=== PATIENT | male | born 1955 | race Caucasian/White ===

== ENCOUNTER 2017-07-02 23:29 | Inpatient (IN) | payer OTHER ==
[~2017-07-02] VITALS: Ht 195.6 cm; Wt 108.0 kg
[2017-07-02 23:59] LABS: HEMATOCRIT 51.6 % (42.0-52.0); HEMOGLOBIN 17.5 gm/dL (14.0-18.0); MCH 30.7 pg (26.0-34.0); MCHC 33.9 g/dL (28.0-37.0); MCV 90.8 fL (80.0-100.0); MPV 8.2 fl. (7.2-11.1); NUCLEATED RBCS 0 /100WBC; PLATELET COUNT* 213 thou/uL (150-400); RBC 5.68 mil/uL (4.50-6.00); RDW-CV 12.9 % (10.5-14.5); WBC 18.1 thou/uL (4.0-11.0)
[2017-07-03 00:10] LABS: ALBUMIN 3.7 g/dL (3.4-5.0); CALCIUM 8.7 mg/dL (8.5-10.1); POTASSIUM 3.9 mmol/L (3.5-5.1); TOTAL BILIRUBIN 1.3 mg/dL (<0.1-1.0); TOTAL PROTEIN 7.9 g/dL (6.4-8.2)
[2017-07-03 01:34] LABS: ABSOLUTE BASOPHILS 0.2 thou/uL (0.0-0.2); ABSOLUTE LYMPHOCYTES 1.3 thou/uL (0.8-5.3); ABSOLUTE MONOCYTES 2.7 thou/uL (0.0-1.2); ABSOLUTE NEUTROPHILS 13.9 thou/uL (1.6-8.1); PLATELET ESTIMATE ADEQUATE
[2017-07-03 05:30] VITALS: BP 127/62
[2017-07-03 07:43] VITALS: BP 141/86
[2017-07-03 07:53] LABS: HEMATOCRIT 48.9 % (42.0-52.0); HEMOGLOBIN 16.5 gm/dL (14.0-18.0); MCH 30.9 pg (26.0-34.0); MCHC 33.8 g/dL (28.0-37.0); MCV 91.5 fL (80.0-100.0); MPV 8.1 fl. (7.2-11.1); RBC 5.35 mil/uL (4.50-6.00); RDW-CV 13.2 % (10.5-14.5); WBC 17.2 thou/uL (4.0-11.0)
[2017-07-03 07:55] LABS: CALCIUM 8.2 mg/dL (8.5-10.1); CREATININE 0.9 mg/dL (0.6-1.3); POTASSIUM 3.9 mmol/L (3.5-5.1)
[2017-07-03 09:00] VITALS: BP 155/86
[2017-07-03 10:07] LABS: APTT 33.6 Seconds (25.0-31.3); INR 1.3; PROTIME 12.2 Seconds (9.20-11.50)
[2017-07-03 11:35] VITALS: BP 132/80
[2017-07-03 15:58] VITALS: BP 151/88
--- NOTE | 2017-07-03 16:26 | 2DMMODE ---
[place] [address] 2 D/M-MODE ECHOCARDIOGRAM Name: KAREN BOYLE Room: [address] IN [facility]#: [id number] Admission: 07/03/17 Attend Phys: Isael Subramanian, Discharge: Date of : 55 Date of Service: 07/03/17 1625 Report #: [id number] THIS REPORT FOR: //name// APPROVED REPORT Study performed: 07/03/2017 14:06:28 EXAM: Comprehensive 2D, Doppler, and color-flow Echocardiogram Patient Location: In-Patient Room #: 230 Status: routine BSA: 2.26 HR: 55 bpm BP: 155/86 mmHg Rhythm: NSR Other Information Study Quality: Good Indications Pleural Effusion 2D Dimensions LVEF(%): 67.32 (>50%) IVSd: 11.76 (7-11mm) LVOT Diam: 24.55 (18-24mm) LVDd: 52.17 mm PWd: 10.08 (7-11mm) Ascending Ao: 36.10 (22-36mm) LVDs: 32.54 (25-40mm) Aortic Root: 37.70 mm French's LVEF: 67.32 % Volumes Left Atrial Volume (Systole) LA ESV Index: 28.50 mL/m2 Aortic Valve AoV Peak Moiz.: 1.45 m/s AO Peak Gr.: 8.46 mmHg LVOT Max P.74 mmHg AO Mean Gr.: 5.02 mmHg LVOT Mean P.65 mmHg LVOT Max V: 1.39 m/s AO V2 VTI: 24.77 cm LVOT Mean V: 0.88 m/s AMBER (VTI): 5.02 cm2 LVOT V1 VTI: 26.27 cm Mitral Valve E/A Ratio: 1.02 [place] [address] 2 D/M-MODE ECHOCARDIOGRAM Name: KAREN BOYLE Room: [address] IN [facility].#: [id number] Admission: 07/03/17 Attend Phys: Isael Subramanian, Discharge: Date of : 55 Date of Service: 07/03/17 1625 Report #: [id number] MV Decel. Time: 196.22 ms MV E Max Moiz.: 0.89 m/s MV PHT: 56.90 ms MVA (PHT): 3.87 cm2 TDI E/Lateral E': 9.89 E/Medial E': 8.09 Medial E' Moiz.: 0.11 m/s Lateral E' Moiz.: 0.09 m/s Pulmonary Valve PV Peak Moiz.: 1.22 m/s PV Peak Gr.: 5.98 mmHg Left Ventricle The left ventricle is normal size. There is normal LV segmental wall motion. Mild concentric left ventricular hypertrophy. Left ventricular systolic function is normal. The left ventricular ejection fraction is within the normal range. LVEF is 55-60%. The left ventricular diastolic function is normal. Right Ventricle The right ventricle is normal size. The right ventricular systolic function is normal. Atria The left atrium size is normal. The right atrium size is normal. Aortic Valve The aortic valve is normal in structure. No aortic regurgitation is present. There is no aortic valvular stenosis. Mitral Valve The mitral valve is normal in structure. There is no mitral valve regurgitation noted. No evidence of mitral valve stenosis. Tricuspid Valve The tricuspid valve is normal in structure. Unable to assess PA pressure. Trace tricuspid regurgitation. Pulmonic Valve The pulmonary valve is normal in structure. There is no pulmonic valvular regurgitation. Great Vessels The aortic root is normal in size. IVC [place] [address] 2 D/M-MODE ECHOCARDIOGRAM Name: TAMARKAREN BRANDON Kyara Room: [address] IN .#: [id number] Admission: 07/03/17 Attend Phys: Isael Subramanian, Discharge: Date of : 55 Date of Service: 07/03/17 1625 Report #: [id number] collapses with >50% inspiration Pericardium There is no pericardial effusion. Left pleural effusion. <Conclusion> The left ventricle is normal size. Mild concentric left ventricular hypertrophy. Left ventricular systolic function is normal. The left ventricular ejection fraction is within the normal range. LVEF is 55-60%. The left ventricular diastolic function is normal. The right ventricle is normal size. The left atrium size is normal. The aortic valve is normal in structure. The mitral valve is normal in structure. The tricuspid valve is normal in structure. IVC is normal in size and collapses with >50% inspiration There is no pericardial effusion. There is normal LV segmental wall motion. <ELECTRONICALLY SIGNED> By: Gael Gipson MD, FACC 07/03/17 1625 1625 1625 Gael Gipson MD, FACC /INF
[2017-07-03] MEDS ORDERED: ZYRTEC-D TABLE1 EAC1 PO (17:24)
[2017-07-03 20:00] VITALS: BP 126/67
[2017-07-04] VITALS: BP 129/85
[2017-07-04 02:07] LABS: GLYCOHEMOGLOBIN (HGB A1C) 4.7 % (4.8-5.6)
[2017-07-04 04:00] VITALS: BP 128/80
[2017-07-04 05:31] LABS: HEMATOCRIT 46.3 % (42.0-52.0); HEMOGLOBIN 15.4 gm/dL (14.0-18.0); MCH 30.7 pg (26.0-34.0); MCHC 33.2 g/dL (28.0-37.0); MCV 92.4 fL (80.0-100.0); MPV 8.7 fl. (7.2-11.1); RBC 5.01 mil/uL (4.50-6.00); RDW-CV 13.4 % (10.5-14.5); WBC 16.6 thou/uL (4.0-11.0)
[2017-07-04 06:04] LABS: ALBUMIN 2.7 g/dL (3.4-5.0); CALCIUM 8.2 mg/dL (8.5-10.1); TOTAL BILIRUBIN 0.8 mg/dL (<0.1-1.0); TOTAL PROTEIN 6.1 g/dL (6.4-8.2)
--- NOTE | 2017-07-04 06:17 | EKG ---
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 : 1955 Requested By: Consuelo Hernandez Order Number: [id number] MD: Humza Potter Measurements Intervals [place] Rate: 75 P: 54 MA: 160 QRS: 42 QRSD: 114 T: 2 QT: 405 QTc: 453 Interpretive Statements Sinus rhythm Consider left atrial enlargement Borderline intraventricular conduction delay Minimal ST elevation, anterior leads No previous ECG available for comparison Electronically Signed On 07-04-2017 6:17:19 BROADCAST SUPERVISOR by Humza Potter [email or web address] <ELECTRONICALLY SIGNED> By: Humza Potter MD, [facility] 07/04/17 0617 Humza Potter MD, FACC /EPI
[2017-07-04 06:54] LABS: INFLUENZA A ANTIGEN None Detected (None Detect); INFLUENZA B ANTIGEN None DetectedA (None Detect)
[2017-07-04 08:00] VITALS: BP 130/77
[2017-07-04 11:18] VITALS: BP 145/81
[2017-07-04 15:42] VITALS: BP 149/81
[2017-07-04 20:00] VITALS: BP 145/79
[2017-07-05] VITALS (8 sets, daily range): BP systolic 131–147; BP diastolic 76–83
[2017-07-05 05:18] LABS: HEMATOCRIT 42.3 % (42.0-52.0); HEMOGLOBIN 14.4 gm/dL (14.0-18.0); MCH 31.2 pg (26.0-34.0); MCHC 34.1 g/dL (28.0-37.0); MCV 91.3 fL (80.0-100.0); RBC 4.63 mil/uL (4.50-6.00); RDW-CV 13.3 % (10.5-14.5); WBC 14.3 thou/uL (4.0-11.0)
[2017-07-05 05:38] LABS: ALBUMIN 2.4 g/dL (3.4-5.0); CALCIUM 8.2 mg/dL (8.5-10.1); CREATININE 0.9 mg/dL (0.6-1.3); MAGNESIUM 1.9 mg/dL (1.8-2.4); POTASSIUM 3.5 mmol/L (3.5-5.1); TOTAL BILIRUBIN 0.6 mg/dL (<0.1-1.0); TOTAL PROTEIN 6.5 g/dL (6.4-8.2)
[2017-07-06 03:40] VITALS: BP 136/82
[2017-07-06 04:32] LABS: HEMATOCRIT 44.7 % (42.0-52.0); HEMOGLOBIN 15.1 gm/dL (14.0-18.0); MCHC 33.8 g/dL (28.0-37.0); MCV 91.8 fL (80.0-100.0); MPV 9.1 fl. (7.2-11.1); RBC 4.88 mil/uL (4.50-6.00); RDW-CV 13.3 % (10.5-14.5); WBC 10.8 thou/uL (4.0-11.0)
[2017-07-06 04:48] LABS: ALBUMIN 2.3 g/dL (3.4-5.0); CALCIUM 8.2 mg/dL (8.5-10.1); POTASSIUM 3.9 mmol/L (3.5-5.1); TOTAL BILIRUBIN 0.4 mg/dL (<0.1-1.0); TOTAL PROTEIN 6.7 g/dL (6.4-8.2)
[2017-07-06 08:24] VITALS: BP 141/85
[2017-07-06 16:00] VITALS: BP 156/89
[2017-07-06 21:00] VITALS: BP 154/94
[2017-07-07 04:17] LABS: HEMATOCRIT 43.8 % (42.0-52.0); HEMOGLOBIN 14.6 gm/dL (14.0-18.0); MCH 30.6 pg (26.0-34.0); MCHC 33.4 g/dL (28.0-37.0); MCV 91.5 fL (80.0-100.0); MPV 7.9 fl. (7.2-11.1); RBC 4.79 mil/uL (4.50-6.00); RDW-CV 13.2 % (10.5-14.5); WBC 9.8 thou/uL (4.0-11.0)
[2017-07-07 04:34] VITALS: BP 158/90
[2017-07-07 04:50] LABS: ALBUMIN 2.3 g/dL (3.4-5.0); CALCIUM 8.1 mg/dL (8.5-10.1); CREATININE 1.1 mg/dL (0.6-1.3); MAGNESIUM 2.2 mg/dL (1.8-2.4); POTASSIUM 3.7 mmol/L (3.5-5.1); TOTAL BILIRUBIN 0.3 mg/dL (<0.1-1.0); TOTAL PROTEIN 6.5 g/dL (6.4-8.2)
[2017-07-07 07:45] VITALS: BP 140/85
[2017-07-07 15:59] VITALS: BP 162/78
[2017-07-07 19:30] VITALS: BP 156/90
[2017-07-08 00:10] VITALS: BP 165/97
[2017-07-08 04:00] VITALS: BP 156/97
[2017-07-08 04:21] LABS: HEMOGLOBIN 14.9 gm/dL (14.0-18.0); MCH 30.3 pg (26.0-34.0); MCHC 33.1 g/dL (28.0-37.0); MCV 91.6 fL (80.0-100.0); MPV 8.1 fl. (7.2-11.1); RBC 4.91 mil/uL (4.50-6.00); RDW-CV 13.4 % (10.5-14.5); WBC 8.8 thou/uL (4.0-11.0)
[2017-07-08 04:58] LABS: ALBUMIN 2.3 g/dL (3.4-5.0); CALCIUM 8.1 mg/dL (8.5-10.1); MAGNESIUM 1.9 mg/dL (1.8-2.4); POTASSIUM 3.4 mmol/L (3.5-5.1); TOTAL BILIRUBIN 0.5 mg/dL (<0.1-1.0); TOTAL PROTEIN 6.1 g/dL (6.4-8.2)
[2017-07-08 08:34] VITALS: BP 144/68
[2017-07-08 13:41] VITALS: BP 144/68
[2017-07-08] MEDS ORDERED: FLAGYL500 M1 PO (13:59)
[2017-07-08] MEDS ORDERED: CIPRO500 MG PO (13:59)
[2017-07-08] MEDS ORDERED: HYDROCODON-ACE1 EAC8 PO (14:00)
[2017-07-08] MEDS ORDERED: ASPERCREME1 EACH TRANSDERM (14:06)
[2017-07-08 14:32] LABS: CALCIUM 8.5 mg/dL (8.5-10.1); MAGNESIUM 2.1 mg/dL (1.8-2.4)
[2017-07-08 16:59] LABS: POTASSIUM 3.5 mmol/L (3.5-5.1)
--- NOTE | 2017-07-10 10:57 | CON ---
[address] [address] CONSULTATION Name: KAREN BOYLE Room: [address] IN .R.#: [id number] Admission: 07/03/17 Attend Phys: Isael Subramanian MD Discharge: 07/08/17 Date of : 55 Report #: [id number] THIS REPORT FOR: //name// CC: Isael Oconnell [facility] DATE OF SERVICE: 07/08/2017 REFERRING PHYSICIAN: Isael Subramanian MD CHIEF COMPLAINT: Abnormal chest x-ray. HISTORY OF PRESENT ILLNESS: The patient is a 61-year-old male who presented to the hospital with abdominal pain. His hospitalization resulted in findings of an acute cholecystitis. He underwent a surgical procedure, which was performed uneventfully. This was done on 07/05/2017. He had a diagnostic laparoscopic evaluation with lysis of adhesions, cholecystectomy, tube placement, gallbladder aspiration and ASHLEY drain in the right upper quadrant. Procedure was performed in an uneventful manner. He has recovered nicely. His pain is controlled. He denies any respiratory issues at this time. Because of an abnormal chest x-ray, we were consulted. ALLERGIES: None known. PAST MEDICAL HISTORY: None. SOCIAL HISTORY: He had been a smoker, quit in 2000, but had been as high as 2 packs per day off and on since his teenage years. REVIEW OF SYSTEMS: Systems review negative other than what is outlined above. FAMILY HISTORY: Positive for his father having mesothelioma. MEDICATIONS: Lidoderm patch, levothyroxine, Zosyn. PHYSICAL EXAMINATION: VITAL SIGNS: Blood pressure 144/68, respiratory rate 18, pulse rate 68, temperature 97.8 degrees. GENERAL APPEARANCE: Awake, alert, oriented, no respiratory distress. HEENT: Head: Atraumatic. Eyes: Pupils are round and equal, reactive. Sclerae and conjunctivae are clear. NECK: Without adenopathy. CHEST: Reveals diminished breath sounds in the bases. CARDIOVASCULAR: Regular rhythm. ABDOMEN: Soft, without organomegaly. Drainage tubes [place] [address] CONSULTATION Name: KAREN BOYLE Room: [address] IN ..#: [id number] Admission: 07/03/17 Attend Phys: Isael Subramanian MD Discharge: 07/08/17 Date of : 55 Report #: [id number] present in the right upper quadrant area of the abdomen. EXTREMITIES: Without edema. No evidence of clubbing. SKIN: Warm and dry without rash. NEUROLOGIC: Strength equal bilaterally. Light touch sensation normal. MEDICAL IMAGING STUDIES: CT of the abdomen/pelvis revealed small effusion on the right, but mild to moderate effusion on the left side. There appears to be a pleural based density with some consolidative process in the right lower lung field, one involving the lateral aspect of the right lower chest as well as one medially just adjacent to the collection of pleural fluid. LABORATORY DATA: Sodium 139, potassium 3.4, chloride 103, CO2 of 31, BUN of 18, creatinine 1.0. Hemoglobin and hematocrit are 14.9 and 45, white count 8800, platelet count 239,000. Influenza A/B screen was negative. IMPRESSION: 1. Abdominal pain status post cholecystitis. 2. Status post abdominal surgery as outlined above. See the formal dictated surgical report. 3. Abnormal chest x-ray with the findings as described above with a mild effusion on the left with some consolidative process and pleural based density. RECOMMENDATION: The patient has undergone CT exam of the chest. This would be helpful to have that inflow to determine any further workup and/or evaluation regarding those abnormalities. The patient is interested in going home. Surgical department has recommended discharge. Pulmonary smith, I see no reason why the patient cannot be discharged. Evaluation of his abnormal chest x-ray can be performed as an outpatient as well. The patient understands this and will follow through if that is the plan that develops. <ELECTRONICALLY SIGNED> By: Reji Heaton MD 07/10/17 1057 1101 [id number] Scherer MD /nt
--- NOTE | 2017-08-14 10:58 | OP ---
[facility] [address] [place] [address] OPERATIVE REPORT Name: KAREN BOYLE Room: [address] IN M.R.#: [id number] Admission: 07/03/17 Attend Phys: Isael Subramanian MD Discharge: 07/08/17 Date of : 55 Report #: [id number] THIS REPORT FOR: //name// CC: Isael Oconnell [facility] DICTATED BY: Kiley Tucker DO DATE OF SERVICE: 07/05/2017 This is Kiley Tucker DO, PGY5 dictating for Dr. Kev Castaneda. PREOPERATIVE DIAGNOSIS: Acute cholecystitis. POSTOPERATIVE DIAGNOSIS: Acute perforated cholecystitis. SURGEON: Kiley Tucker DO, PGY5. SUPERVISING SURGEON: Kev Castaneda DO OUTREACH WORKER: Bi Doyle, PGY1 PROCEDURE: Diagnostic laparoscopy with lysis of adhesions, cholecystostomy tube placement, gallbladder aspiration and ASHLEY drain in the right upper quadrant. ANESTHESIA: General endotracheal. BLOOD LOSS: 10 mL. SPECIMENS: Bile sent for culture. COMPLICATIONS: None. DISPOSITION: PACU to med/surg. OPERATIVE DETAILS: After obtaining proper informed consent, the patient was brought to the operating room and laid supine on the operating table. He was given his scheduled for antibiotics and sedated and intubated under the benefit of general anesthesia. Abdomen was prepped and draped in the usual sterile fashion and timeout was performed. Supraumbilical incision was made and dissection of subcutaneous tissue was carried out with the use of cautery to the level of the fascia. A nicking incision was made in the fascia and this was grasped with 2 Tyler clamps and elevated and fascial incision was extended slightly inferiorly and superiorly. Peritoneum was entered bluntly with a hemostat. A ikobwx-tj-shjzj 0 Vicryl sutures were placed in the fascia and Alis trocar was placed in the abdomen and abdomen [place] [address] OPERATIVE REPORT Name: KAREN BOYLE Room: [address]#: [id number] Admission: 07/03/17 Attend Phys: Isael Subramanian MD Discharge: 07/08/17 Date of : 55 Report #: [id number] 4-quadrant inspection was undertaken. There were significant swelling and omental adhesions to the right upper quadrant overlying the expected area of the gallbladder. A 5 mm trocar was placed in the right lateral abdomen under direct visualization followed by a 5 mm trocar in the subxiphoid position again under direct visualization. A gentle blunt dissection was undertaken and omental adhesions were taken down from the anterior abdominal wall and then gently peeled away from the liver edge until we could reveal the gallbladder. There did appear to be some leakage of bile from the superior lateral aspect of the gallbladder. At this point, we decided to place a cholecystostomy tube. A 12-Algerian cholecystostomy tube was placed through the right lateral abdomen and in good position within the gallbladder. It was aspirated with copious amounts of thickened somewhat purulent appearing bile was aspirated. This was sent for culture. Once the gallbladder was significantly deflated, trocars were removed under direct visualization and abdomen was desufflated. After ASHLEY drain was placed in the right upper quadrant, ASHLEY drain was secured with 2-0 nylon suture. An additional 2 xhwyfb-ut-kiugq 0 Vicryl sutures were placed in the fascia of the supraumbilical incision and skin of all incisions was closed with 4-0 Monocryl. Local infiltration of 0.5% Marcaine was injected around the incisions and both drains totalling 40 mL. Cholecystostomy tube was secured. Mastisol, Steri-Strips and sterile Tegaderm dressings were applied followed by gauze pressure dressing. All counts were correct at the end of the case. Drapes were removed and the patient was awoken, extubated and brought to PACU in good condition for further recovery. Dr. Kev Castaneda was present and scrubbed for the entirety of the procedure. <ELECTRONICALLY SIGNED> By: Kev Castaneda DO 08/14/17 1058 2256 [id number] Castaneda DO /nt
[2017-10-09] MEDS ORDERED: DAYTIME COU5 MG/5 ML PO (06:51)
[2017-10-09] MEDS ORDERED: TRAMADOL 50 MG50 MG PO (11:39)
== END 2017-07-08 15:21 | disposition home or self-care (01) | DRG 420 ==
LOC: M.ERS 23:29 → M.TBA-ER 07-03 01:41 → M.2W 07-03 01:41 → M.ORTHSURG 07-05 15:28
PROVIDERS: Emergency Medicine; Family Medicine; Internal Medicine; ADMIT Internal Medicine
DX: K81.0 Acute cholecystitis (principal); J15.6 Pneumonia due to other Gram-negative bacteria; J90 Pleural effusion, not elsewhere classified; E87.1 Hypo-osmolality and hyponatremia; E44.0 Moderate protein-calorie malnutrition; R65.10 Systemic inflammatory response syndrome (SIRS) of non-infectious origin without acute organ dysfunction; E87.6 Hypokalemia; D72.829 Elevated white blood cell count, unspecified; R73.9 Hyperglycemia, unspecified; Z68.28 Body mass index [BMI] 28.0-28.9, adult; Z87.891 Personal history of nicotine dependence; Z79.899 Other long term (current) drug therapy

== ENCOUNTER 2017-07-23 10:00 | Emergency (ER) | payer OTHER ==
[~2017-07-23] VITALS: Ht 182.9 cm; Wt 94.8 kg
[~2017-07-23 10:00] MED LIST: ASPERCREME1 EACH TRANSDERM; CIPRO500 MG PO; FLAGYL500 M1 PO; HYDROCODON-ACE1 EAC8 PO; ZYRTEC-D TABLE1 EAC1 PO
[2017-07-23 10:26] LABS: URINE BLOOD TRACE (Negative); URINE CLARITY CLEAR; URINE COLOR YELLOW; URINE GLUCOSE-RANDOM NEGATIVE (Negative); URINE KETONES TRACE (Negative); URINE LEUKOCYTES-REFLEX NEGATIVE (Negative); URINE NITRITE-REFLEX NEGATIVE (Negative); URINE PROTEIN 1+ (Negative); URINE SPECIFIC GRAVITY 1.015 (1.005-1.030); URINE UROBILINOGEN 0.2 E.U./dl (0.2-1.0)
[2017-07-23 10:34] LABS: ICTOTEST (BILI CONFIRMATORY) Negative (Negative); URINE BILIRUBIN 1+ (Negative)
[2017-07-23 10:45] LABS: HEMATOCRIT 51.1 % (42.0-52.0); HEMOGLOBIN 17.2 gm/dL (14.0-18.0); MCH 30.1 pg (26.0-34.0); MCHC 33.6 g/dL (28.0-37.0); MCV 89.7 fL (80.0-100.0); MPV 8.7 fl. (7.2-11.1); NUCLEATED RBCS 0 /100WBC; PLATELET COUNT* 126 thou/uL (150-400); RDW-CV 13.5 % (10.5-14.5); WBC 7.9 thou/uL (4.0-11.0)
[2017-07-23 10:51] LABS: CREATININE 1.2 mg/dL (0.6-1.3); POTASSIUM 3.3 mmol/L (3.5-5.1)
[2017-07-23 10:55] LABS: TOTAL BILIRUBIN 0.7 mg/dL (<0.1-1.0)
[2017-07-23 11:03] LABS: ABSOLUTE LYMPHOCYTES 0.5 thou/uL (0.8-5.3); ABSOLUTE MONOCYTES 0.2 thou/uL (0.0-1.2); ABSOLUTE NEUTROPHILS 7.2 thou/uL (1.6-8.1); ANISOCYTOSIS 1+; PLATELET ESTIMATE DECREASED; POIKILOCYTOSIS 1+
[2017-07-23 17:30] VITALS: BP 135/68
[2017-10-09] MEDS ORDERED: DAYTIME COU5 MG/5 ML PO (06:51)
[2017-10-09] MEDS ORDERED: TRAMADOL 50 MG50 MG PO (11:39)
== END 2017-07-23 17:31 | disposition home or self-care (01) ==
LOC: M.ERS 10:00
PROVIDERS: Nurse Practitioner Family
DX: G89.18 Other acute postprocedural pain (principal); R10.11 Right upper quadrant pain; F10.99 Alcohol use, unspecified with unspecified alcohol-induced disorder; Z88.5 Allergy status to narcotic agent

== ENCOUNTER 2017-08-27 13:11 | Inpatient (IN) | payer OTHER ==
[2017-08-27] VITALS (10 sets, daily range): BP systolic 112–129; BP diastolic 61–72
[~2017-08-27] VITALS: Ht 182.9 cm; Wt 106.6 kg
[2017-08-27 14:18] LABS: CREATININE 1.3 mg/dL (0.6-1.3)
--- NOTE | 2017-08-27 18:51 | NUR ---
PATIENT CAME TO THE FLOOR FROM IR IN STABLE CONDITION, NO COMPLAINTS AT THIS TIME. ORIENTED TO ROOM, CALL LIGHT IN REACH AND QUESTIONS ANSWERED FOR PATIENT. WILL PASS ON REPORT TO DIRECTOR OF FIRST IMPRESSIONS.
[2017-08-27 19:29] LABS: HEMATOCRIT 43.4 % (42.0-52.0); HEMOGLOBIN 14.3 gm/dL (14.0-18.0); MCH 28.2 pg (26.0-34.0); MCV 85.7 fL (80.0-100.0); MPV 7.7 fl. (7.2-11.1); NUCLEATED RBCS 0 /100WBC; PLATELET COUNT* 269 thou/uL (150-400); RBC 5.07 mil/uL (4.50-6.00); RDW-CV 13.8 % (10.5-14.5); WBC 12.2 thou/uL (4.0-11.0)
[2017-08-27 19:42] LABS: ALBUMIN 2.5 g/dL (3.4-5.0); CALCIUM 8.2 mg/dL (8.5-10.1); CREATININE 1.1 mg/dL (0.6-1.3); MAGNESIUM 2.5 mg/dL (1.8-2.4); PHOSPHORUS* 3.5 mg/dL (2.5-4.9); POTASSIUM 3.4 mmol/L (3.5-5.1); TOTAL BILIRUBIN 0.5 mg/dL (<0.1-1.0); TOTAL PROTEIN 7.1 g/dL (6.4-8.2)
[2017-08-27 20:03] LABS: ABSOLUTE LYMPHOCYTES 1.3 thou/uL (0.8-5.3); ABSOLUTE MONOCYTES 0.7 thou/uL (0.0-1.2); ABSOLUTE NEUTROPHILS 10.1 thou/uL (1.6-8.1)
[2017-08-27 20:04] LABS: PLATELET ESTIMATE ADEQUATE
[2017-08-28] VITALS (7 sets, daily range): BP systolic 114–131; BP diastolic 66–79
[2017-08-28 05:27] LABS: HEMATOCRIT 41.5 % (42.0-52.0); HEMOGLOBIN 14.1 gm/dL (14.0-18.0); MCH 28.8 pg (26.0-34.0); MCHC 34.1 g/dL (28.0-37.0); MCV 84.4 fL (80.0-100.0); MPV 7.5 fl. (7.2-11.1); RBC 4.91 mil/uL (4.50-6.00); RDW-CV 13.7 % (10.5-14.5); WBC 9.4 thou/uL (4.0-11.0)
--- NOTE | 2017-08-28 05:43 | NUR ---
PT SLEPT FAIRLY WELL OVERNIGHT, AWAKE THIS MORNING WATCHING NEWS. RECEIVING PO PAIN MED Q4 HOURS PRN FOR PAIN 07/28 WITH GOOD RESULT. R SIDE ABD YUSUF TUBE DRAINING 75ML BLOODY PURULENT DRAINAGE. USING URINAL TO VOID OVERNIGHT WITHOUT DIFFICULTY. REFUSING SCDS, EDUCATION GIVEN. PT ABLE TO TURN SELF, REFUSING STAFF ASSIST TURNS OVERNIGHT, EDUCATION GIVEN. RAC SL, ABX GIVEN ORDERED. VSS. ABLE TO USE CALL LITE AND MAKE NEEDS KNOWN. ABD AROUND TUBE SITE REMAINS RED, WARM AND SL FIRM TO TOUCH. PT TOLERATING CLEAR LIQUIDS WITHOUT DIFFICULTY, TO HAVE REGULAR DIET FOR BREAKFAST. PT AGREEABLE TO GETTING OOB WITH BREAKFAST. ABLE TO USE CALL LITE AND MAKE NEEDS KNOWN. AM LABS.
[2017-08-28 05:55] LABS: CALCIUM 8.6 mg/dL (8.5-10.1); POTASSIUM 3.7 mmol/L (3.5-5.1)
--- NOTE | 2017-08-28 16:01 | NUR ---
SW met with pt to complete initial assessment, introduce self, and SW role. Pt familiar with hospital from previous admissions. Pt lives with significant other and pt son is in home about 3 days a week; pt said that pt son now has a girlfriend. 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 Pt did not anticipate any dc needs at this time. SW to continue to follow.
--- NOTE | 2017-08-28 17:45 | NUR ---
PATIENT HAS BEEN ALERT AND ORIENTED TODAY VERY PLEASANT. VITAL SIGNS HAVE BEEN STABLE ON ROOM AIR. PATIENT HAS BEEN UP WALKING IN ROOM. SOME COMPLAINTS OF PAIN LOCALLY TO THE DRAIN SITE THAT IS WELL CONTROLLED WITH ORAL PAIN MEDICATIONS. CALL LIGHT IS IN REACH, WILL CONTINUE TO MONITOR.
[2017-08-29 00:22] VITALS: BP 109/52; BP 123/78
--- NOTE | 2017-08-29 05:25 | NUR ---
PATIENT ALERT AND ORIENTED. VITALS STABLE. RA. YUSUF DRAIN IN PLACE, DRAINING SANGUINEOUS FLUID. REDNESS NOTED AROUND SITE. NO SIGNS OF ANY ADVERSE REACTIONS TO ANTIBIOTIC THERAPY. PAIN CONTROLLED WITH PO MEDICATION. UP INDEPENDENTLY IN ROOM. HOURLY ROUNDS. NURSING WILL CONTINUE TO MONITOR.
[2017-08-29 06:56] VITALS: BP 111/63; BP 134/81
[2017-08-29 07:40] VITALS: BP 124/88
[2017-08-29 12:15] VITALS: BP 136/92
[2017-08-29 14:55] VITALS: BP 129/78
--- NOTE | 2017-08-29 15:54 | NUR ---
SPOKE WITH FUEL CELL TEST ENGINEER X2 REGARDING SENSITIVITIES. WAITING FOR DR. REDDY TO REVIEW LABWORK. POSSIBLE DC TOMORROW.
--- NOTE | 2017-08-29 16:19 | NUR ---
PATIENT REMAINS ALERT AND ORIENTED. PAIN CONTROLLED WITH HYDROCODONE. UP AD WOOD. YUSUF TUBE RIGHT FLANK- DARK GREEN DRAINAGE. VSS. TOLERATING MEALS. IV ANTIBITOICS INFUSING. CALL LIGHT WITHIN REACH. WILL CONTINUE TO MONITOR.
[2017-08-29] MEDS ORDERED: BACTRIM DS TAB1 EAC1 PO (19:52)
[2017-08-29 19:53] VITALS: BP 129/78
--- NOTE | 2017-08-29 20:46 | NUR ---
ORDER RCEIVED FOR DISCHARGE HOME TONIGHT. DISCHARGE INSTRUCTIONS AND SCRIPTS WERE GIVEN TO PATIENT. PATIENT VERBALIZED UNDERSTANDING. PATIENT WAS TAKEN DOWN WITH NURSING STAFF AND ALL BELONGINGS AT 2044.
[2017-10-09] MEDS ORDERED: DAYTIME COU5 MG/5 ML PO (06:51)
[2017-10-09] MEDS ORDERED: TRAMADOL 50 MG50 MG PO (11:39)
== END 2017-08-29 20:45 | disposition home or self-care (01) | DRG 445 ==
LOC: M.CT 13:11 → M.3W 17:30 → M.TBA 17:30 → M.3W 18:20
PROVIDERS: ADMIT Surgery
PROC: 0F943ZZ Drainage of Gallbladder, Percutaneous Approach (ICD-10-PCS; principal; 2017-08-27)
DX: K80.12 Calculus of gallbladder with acute and chronic cholecystitis without obstruction (principal); E44.1 Mild protein-calorie malnutrition; R65.10 Systemic inflammatory response syndrome (SIRS) of non-infectious origin without acute organ dysfunction; Z88.4 Allergy status to anesthetic agent; Z88.8 Allergy status to other drugs, medicaments and biological substances

== ENCOUNTER → 2017-10-09 | Day surgery (SDC) | payer OTHER ==
[~2017-10-09] VITALS: Ht 182.9 cm; Wt 95.3 kg
[~2017-10-09] MED LIST changes: +BACTRIM DS TAB1 EAC1 PO; +DAYTIME COU5 MG/5 ML PO; +TRAMADOL 50 MG50 MG PO
[2017-10-09 07:02] LABS: HEMATOCRIT 44.4 % (42.0-52.0); HEMOGLOBIN 14.7 gm/dL (14.0-18.0); MCHC 33.1 g/dL (28.0-37.0); MCV 84.8 fL (80.0-100.0); MPV 7.5 fl. (7.2-11.1); RBC 5.24 mil/uL (4.50-6.00); RDW-CV 15.8 % (10.5-14.5); WBC 7.4 thou/uL (4.0-11.0)
[2017-10-09 07:06] LABS: POTASSIUM 4.2 mmol/L (3.5-5.1)
[2017-10-09 07:12] VITALS: BP 137/76
[2017-10-09 07:13] LABS: CALCIUM 8.7 mg/dL (8.5-10.1); CREATININE 0.9 mg/dL (0.6-1.3)
[2017-10-09 11:45] VITALS: BP 137/76
--- NOTE | 2017-11-08 17:18 | OP ---
[facility] [address] [place] [address] OPERATIVE REPORT Name: KAREN BOYLE Room: [facility]#: [id number] Admission: 10/09/17 Attend Phys: Kev Castaneda DO Discharge: Date of : 55 Report #: [id number] THIS REPORT FOR: //name// CC: Kev Crane MD DICTATED BY: Kiley Tucker DO DATE OF SERVICE: 10/09/2017 PREOPERATIVE DIAGNOSIS: Acute cholecystitis. POSTOPERATIVE DIAGNOSIS: Acute cholecystitis. PROCEDURE: Laparoscopic cholecystectomy with removal of nicolás tube. SURGEON: Kiley Tucker DO SUPERVISING SURGEON: Kev Castaneda DO CRNA: Babatunde Zimmer, PGY1. ANESTHESIA: General endotracheal. ESTIMATED BLOOD LOSS: 30 mL. SPECIMENS: Gallbladder. COMPLICATIONS: None. DISPOSITION: PACU to home. OPERATIVE DETAILS: After obtaining proper informed consent, the patient was brought to the operating room and laid supine on the operating table. He was given preoperative antibiotics and sedated and intubated under the benefit of general anesthesia. The pigtail catheter was removed from right upper quadrant and abdomen was prepped and draped in the usual sterile fashion and timeout was performed. A supraumbilical incision was made and dissection of subcutaneous tissue was carried out to the level of the fascia with the use of cautery. Nicking incision was made in the fascia with the use of cautery. This was extended slightly inferiorly and superiorly. Peritoneum was entered bluntly and finger was placed in the abdomen and peritoneum was swept and found to be free of adhesions. Two henthu-tr-eeowc 0 Vicryl sutures were placed on the fascia and Alis trocar was placed in the abdomen and abdomen was insufflated. Camera was placed in the abdomen. There were [place] [address] OPERATIVE REPORT Name: TAMARKAREN Room: [facility].#: [id number] Admission: 10/09/17 Attend Phys: Kev Castaneda DO Discharge: Date of : 55 Report #: [id number] anterior abdominal wall of both the omentum and the edge of the liver. The 5 mm trocars were then placed in the subxiphoid position and two in the right upper quadrant under direct visualization. Omental adhesions were taken down and taken off the anterior surface of the gallbladder with careful blunt and cautery dissection. Once these were cleared to about the mid gallbladder, this was grasped and retracted slightly cephalad and anterior. We then continued with careful blunt dissection until we had reached Tay's pouch. Peritoneum was opened with the use of cautery and carefully opened laterally. Very careful blunt dissection was carried out to dissect free the cystic duct and the cystic artery. The patient had received 5 mg of ICG and fluorescence was used to identify the cystic duct. Two clips were placed proximal and one distal on the cystic duct. blood flow about distal of the cystic artery. Gallbladder was then dissected free of the liver bed with the use of cautery. There were dense adhesions at the fundus and we did have slight spillage of a single gallstone. Once gallbladder was completely free, it was placed in an EndoCatch bag and gallstone was retrieved and placed in an EndoCatch bag. Gallbladder fossa was then copiously irrigated and fossa was inspected and hemostasis was assured with cautery. Irrigation fluid was suctioned free of the right upper quadrant. Abdomen was desufflated and trocars were removed under direct visualization with no evidence of bleeding. Gallbladder was brought out through supraumbilical incision. We did have to extend the fascial incision slightly. It was inspected with multiple large gallstones. It was sent to pathology for further evaluation. A total of 3 punbun-yv-ivmkn 0 Vicryl sutures were placed in the fascia of the supraumbilical incision with good approximation. Local infiltration of 40 mL of Marcaine was injected around all incisions. Subcutaneous tissue of supraumbilical incision was reapproximated with 3-0 Vicryl and skin of all incisions was closed with 4-0 Monocryl. A previous percutaneous drain site was excised in an elliptical fashion and closed with 2-0 nylon vertical mattress sutures. Mastisol, Steri-Strips and sterile Tegaderm dressing were applied. All counts were correct at the end of the case. Drapes removed and the patient was awoken and extubated and brought to PACU in good condition for further recovery. Dr. Kev Castaneda was present and scrubbed for the entire procedure. <ELECTRONICALLY SIGNED> By: Kev Castaneda DO 11/08/17 1718 1100 [id number] Castaneda DO /nt
--- NOTE | 2018-02-05 11:31 | PATH ---
[facility] [address] [place] [address] PATHOLOGY RPT PROCEDURE Name: HUMZA BOYLE Room: [facility].#: [id number] Admission: 10/09/17 Date of : 55 Discharge: Report #: [id number] Path Case #: [id number] [facility] Accession Number: [id number] . 01 Material submitted: . GALLBLADDER AND CONTENTS . 01 Clinical history: . acute cholecystitis . 02 Diagnosis: Gallbladder and contents: - Chronic and acute ulcerative cholecystitis with mural abscess and fibrosis, cholelithiasis, attached scant benign liver tissue and benign sentinel lymph node. ([place]:desirae; 10/10/2017) QMS/10/10/2017 . 02 Electronically signed: . Dalton Guerrero MD, Pathologist NPI- [id number] . 01 Gross description: . Received in formalin labeled "Humza Boyle and gallbladder and contents," is a disrupted, 7.0 x 2.5 x 1.8 cm, gallbladder with a 1.5 x 0.9 cm defect (inked green) that, towards the fundus shows a yellow-brown calculus. The serosal surface is dumont brown partially hemorrhagic. The hepatic surface is ragged with minimally attached hepatic parenchyma (inked black). Within the cystic duct region there is a 0.4 x 0.4 x 0.2 cm up whitley, rubbery possible lymph node identified. Opening the gallbladder reveals the lumen filled with multiple multifaceted to oval brown yellow calculi measuring 4.5 x 3.0 x 1.5 cm in aggregate. The mucosa is whitley-pink,hyperemic with a wall that ranges from 0.2 cm up to 0.7 cm (towards the fundus). Marine Steamfitter sections are submitted in A1-A3. . A1 sections of cystic duct margin, serosal surface, hepatic surface and possible lymph node A2 sectioning of defect inked green and indurated wall A3 additional sections of indurated wall towards the hepatic aspect, inked black (SWS; 10/09/2017) [facility] . 02 CPT . 552550 Specimen Comment: A duplicate report has been generated due to demographic updates. Performed at: [address] [place] [address] PATHOLOGY RPT PROCEDURE Name: HUMZA BOYLE Room: [facility]#: [id number] Admission: 10/09/17 Date of : 55 Discharge: Report #: [id number] Path Case #: [id number] [facility] [place] [address], [place], [place] [id number] MD Abrahan King MD Phone: [phone] Performed at: [address] [facility] [address] [place] [id number] MD Dalton Guerrero MD Phone: [phone]
== END | disposition home or self-care (01) ==
LOC: EDSTATUS 06:35 → M.SUR 06:38 → EDSTATUS 09:41 → M.PRE 09:55 → EDSTATUS 15:52 → M.SUR 15:54
PROVIDERS: Surgery
DX: K81.0 Acute cholecystitis (principal); Z93.8 Other artificial opening status; Z98.890 Other specified postprocedural states; Z88.8 Allergy status to other drugs, medicaments and biological substances; Z79.899 Other long term (current) drug therapy; Z79.891 Long term (current) use of opiate analgesic

== ENCOUNTER → 2019-07-18 | Outpatient (CLI) | payer OTHER ==
[2019-07-18 08:35] VITALS: BP 159/95
[2019-07-18 08:58] LABS: HEMATOCRIT 51.9 % (42.0-52.0); HEMOGLOBIN 17.9 gm/dL (14.0-18.0)
[2019-07-18 09:25] VITALS: BP 160/99
--- NOTE | 2019-07-18 09:33 | NUR ---
ARRIVED AMBULATORY. MADE SELF COMFORTABLE IN RECLINER. EDUCATION COMPLETED. VOICED UNDERSTANDING AND AGREED. CONSENT SIGNED. LABS DRAWN FROM IV START. LAB RESULTS EVALUATED AND CRITERIA MET FOR PHLEBOTOMY. PROCEDURE COMPLETED AND TOLERATED WELL. DENIES [place] OR NEEDS AT DISCHARGE.
== END ==
LOC: M.INFUS 08:00
DX: M15.0 Primary generalized (osteo)arthritis (principal); E29.1 Testicular hypofunction; J30.9 Allergic rhinitis, unspecified; N52.9 Male erectile dysfunction, unspecified; M25.50 Pain in unspecified joint